=== PATIENT | female | born 1940 | race Caucasian/White ===

== ENCOUNTER → 2016-07-18 | Outpatient (CLI) | payer MEDICARE | END | disposition home or self-care (01) | LOC: PCVCCLINIC 13:30 | PROVIDERS: ATTEND Internal Medicine | DX: I25.10 Atherosclerotic heart disease of native coronary artery without angina pectoris (principal); I25.5 Ischemic cardiomyopathy; I71.2 Thoracic aortic aneurysm, without rupture; E78.5 Hyperlipidemia, unspecified; I77.9 Disorder of arteries and arterioles, unspecified; E78.00 Pure hypercholesterolemia, unspecified; F17.200 Nicotine dependence, unspecified, uncomplicated | CPT/HCPCS: 80061; 93005; G0463 ==

== ENCOUNTER → 2018-03-29 | Outpatient (CLI) | payer MEDICARE | END | disposition home or self-care (01) | LOC: PCVCCLINIC 13:12 | PROVIDERS: ATTEND Internal Medicine | DX: I25.10 Atherosclerotic heart disease of native coronary artery without angina pectoris (principal); R94.31 Abnormal electrocardiogram [ECG] [EKG]; I10 Essential (primary) hypertension; I25.5 Ischemic cardiomyopathy; E78.5 Hyperlipidemia, unspecified; I71.2 Thoracic aortic aneurysm, without rupture; I65.23 Occlusion and stenosis of bilateral carotid arteries; F17.210 Nicotine dependence, cigarettes, uncomplicated; I25.2 Old myocardial infarction; Z72.89 Other problems related to lifestyle | CPT/HCPCS: 36415; 80061; 93005; G0463 ==

== ENCOUNTER → 2019-02-28 | Outpatient (CLI) | payer MEDICARE ==
--- NOTE | 2019-02-28 11:15 | PCVCIMAG ---
APPROVED REPORT Study performed: 02/28/2019 08:41:04 EXAM: Comprehensive 2D, Doppler, and color-flow Echocardiogram Patient Location: Echo lab Room #: 2Status: routine BSA: 1.53 HR: 68 bpmBP: 162/78 mmHg Rhythm: NSR Other Information Study Quality: Good Risk Factors: Cardiac Risk Factors: HTN, Hyperlipidemia, Smoking Indications Cardiomyopathy History of Inferior ND, Thoracic aortic aneurysm 2D Dimensions IVSd: 6.02 (7-11mm)LVOT Diam: 20.11 (18-24mm) LVDd: 45.77 mm PWd: 6.80 (7-11mm)Ascending Ao: 32.12 (22-36mm) LVDs: 36.88 (25-40mm) Left Atrium: 30.61 (27-40mm) Aortic Root: 25.23 mm LV Single Plane 4CH: 49.90 % LV Single Plane 2CH: 46.99 % Biplane EF: 49.0 % Volumes Left Atrial Volume (Systole) Single Plane 4CH: 56.96 mLSingle Plane 2CH: 67.26 mL Biplane LA Volume: 64.00 mLLA ESV Index: 42.00 mL/m2 Aortic Valve AoV Peak Rafael.: 0.99 m/s AO Peak Gr.: 3.91 mmHgLVOT Max P.11 mmHg LVOT Max V: 0.88 m/s STEVIE Vmax: 2.84 cm2 Mitral Valve E/A Ratio: 1.1 MV Decel. Time: 211.45 ms MV E Max Rafael.: 0.89 m/s MV A Rafael.: 0.82 m/s IVRT: 100.35 ms TDI E/Lateral E': 9.89E/Medial E': 17.80 Medial E' Rafael.: 0.05 m/s Lateral E' Rafael.: 0.09 m/s Pulmonary Valve PV Peak Rafael.: 0.75 m/sPV Peak Gr.: 2.25 mmHg Pulmonary Vein P Vein S: 0.57 m/sP Vein A: 0.30 m/s P Vein D: 0.41 m/sP Vein A Dur.: 103.8 msec P Vein S/D Ratio: 1.39 Tricuspid Valve TR Peak Rafael.: 2.74 m/s TR Peak Gr.: 29.93 mmHg TV Vmax: 0.58 m/sPA Pressure: 37.00 mmHg Left Ventricle The left ventricle is normal size. Basal to mid inferior and inferolateral wall akinesis There is normal left ventricular wall thickness. Left ventricular systolic function is mildly decreased. LVEF is 45-50%. Moderate diastolic dysfunction is present (pseudonormal filling). Right Ventricle The right ventricle is normal size. The right ventricular systolic function is normal. Atria Left atrium is moderately dilated. Right atrium is moderately dilated. Aortic Valve Aortic valve is trileaflet, mildly sclerotic. No aortic regurgitation is present. There is no aortic valvular stenosis. Mitral Valve Mild mitral annular calcification Moderate mitral regurgitation. No evidence of mitral valve stenosis. Tricuspid Valve The tricuspid valve is normal in structure. Moderate to severe tricuspid regurgitation with a PA pressure of 35 mmHg. Mild pulmonary hypertension. Pulmonic Valve The pulmonary valve is normal in structure. There is no pulmonic valvular regurgitation. Great Vessels The aortic root is normal in size. The ascending aorta is normal in size. Aortic arch is normal in caliber. IVC is normal in size and collapses >50% with inspiration. Pericardium There is no pericardial effusion. There is no pleural effusion. <Conclusion> Left ventricular systolic function is mildly decreased. Basal to mid inferior and inferolateral wall akinesis LVEF is 45-50%. Moderate diastolic dysfunction Both atria are moderately dilated. Aortic valve is trileaflet, mildly sclerotic. No aortic regurgitation or stenosis. Mild mitral annular calcification Moderate mitral regurgitation. Mild tricuspid regurgitation with a pulmonary artery pressure of 35 mmHg. There is no pericardial effusion.
--- NOTE | 2019-02-28 14:42 | PCVCIMAG ---
APPROVED REPORT Imaging Protocol: Rest Tc-99m/Stress Tc-99m 1 day Study performed: 02/28/2019 09:24:23 Indication: Dyspnea, CAD, ICM Patient Location: Out-Patient Stress Nurse: Gogo Faye RN, Chelo Cook RN [place] Tech:Alisia Underwoodlorena [facility] Ht: 5 ft 2 in Wt: 118 lbs BSA: 1.53 m2 HR: 75 bpm BP: 195/85 mmHg BMI: 21.5 Rhythm: Sinus Rhythm, nonspecific ST abnormalities Medical History Medical History: HTN, Hyperlipidemia, CVD, CAD, Current Smoker, MT Medications: Aspirin, Carvedilol, Atorvastatin, Plavix, Imdur, Ramipril Allergies: No known drug allergies Cardiac Risk Factors: Age Previous Cardiac Procedures: 2002 MT Pretest Chest Pain Characteristics: No chest pain Exercise History: Physically active Resting Data Rest SPECT myocardial perfusion imaging was performed in supine position 45 minutes following the intravenous injection of 11.6 mCi of Tc-99m Sestamibi. Time of rest injection: 929 Date: 02/28/2019 Administration Route: IV Administration Site: Left AC Exercise Stress At peak stress, the patient was injected intravenously with 32.6mCi of Tc-99m Sestamibi. Time of stress injection: 1114 Date: 02/28/2019 Administration Route: IV Administration Site: Left AC Patient continued to exercise for 1 minute(s). Gated Stress SPECT was performed 45 minutes after stress injection. The images were gated to evaluate regional wall motion and calculate left ventricular ejection fraction. Stress Test Details Stress Test: Exercise stress testing was performed using a Leonard protocol. HRMax Heart Rate (APMHR): 144 bpm Resting HR: 75 bpmTarget HR (85% APMHR): 122 bpm Max HR Achieved: 136 bpm % of APMHR: 94 Recovery HR: 75 bpm BP Resting BP: 195/85 mmHg Max BP: 200/84 mmHg Recovery BP: 164/74 mmHg ECG Resting ECG: Sinus Rhythm, nonspecific ST abnormalities Stress ECG: Sinus Tachycardia, nonspecific ST abnormalities ST Change: Downsloping ST depression Maximum ST Deviation: 2 mm Arrhythmia: PVC's Recovery ECG: Sinus Rhythm, nonspecific ST abnormalities Recovery ST Change: Normal Recovery ST Deviation: 0.5 mm Recovery Arrhythmia: APC Clinical Reason for Termination: Maximal effort, Fatigue, Dyspnea Stress Symptoms: Leg Fatigue Exercise duration: 8 min 06 sec Exercise capacity: 10.10 METs Angina Score: None Symptoms resolved during recovery. Stress ECG Conclusion ECG: Non-ischemic Clinical: Non-ischemic Harden Treadmill Score is -2.0 which is Moderate risk. Study Quality Study: Good Study Data Post stress, the left ventricular ejection was 45%.. SSS: 16 SRS: 16 SDS: 2 TID = 1.43. 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 Post stress, the left ventricular ejection was 45%. No change since prior study dated January 2016. Interpreted by: Calvin Awad MD Electronically Approved: 02/28/2019 14:23:51 <Conclusion> ECG: Non-ischemic Clinical: Non-ischemic
== END | disposition home or self-care (01) ==
LOC: PCVCIMAG 08:24
PROVIDERS: ATTEND Internal Medicine
DX: I08.3 Combined rheumatic disorders of mitral, aortic and tricuspid valves (principal); I11.9 Hypertensive heart disease without heart failure; I21.3 ST elevation (STEMI) myocardial infarction of unspecified site; I25.10 Atherosclerotic heart disease of native coronary artery without angina pectoris; E78.5 Hyperlipidemia, unspecified; I25.5 Ischemic cardiomyopathy; I71.2 Thoracic aortic aneurysm, without rupture; E78.2 Mixed hyperlipidemia; E78.00 Pure hypercholesterolemia, unspecified; F17.210 Nicotine dependence, cigarettes, uncomplicated; Z72.89 Other problems related to lifestyle; Z79.82 Long term (current) use of aspirin; Z79.899 Other long term (current) drug therapy
CPT/HCPCS: 36415; 78452; 93017; 93306; A9500; G0463; 93005